=== PATIENT | female | born 1980 | race American Indian/Alaskan Native ===

== ENCOUNTER 2017-09-25 06:29 | Day surgery (SDC) | payer OTHER, MEDICAID ==
--- NOTE | 2017-09-24 17:21 | History and Physical Report ---
History of Present Illness Date of examination: 09/24/17 History of present illness: Patient has been reassessed/reevaluated. H&P has been reviewed. No interval changes. This is a 37 years old female who presents with menstrual disorder. The patient complains of menses, heavy bleeding, dysmenhorrhea, history of fibroids , fatigue and cramping, but denies spotting, lack of menses, she may be , history of thyroid disease, history of bleeding disorders, lightheadness and orthostatic symptoms. Menstrual periods have been with excessive flow. Patient's work up has included hysterosonogram which reveal a submucous myoma. Patient desires definitive treatment Vital Signs: Patient Profile: 37 Years Old Female Height: 63 inches (160.02 cm) Weight: 190 pounds (86.36 kg) BMI: 33.65 BSA: 1.89 Past History : 5 Term Births: 1 Premature Births: 1 Living Children: 1 Para: 2 Mult. Births: 0 Prev : 1 Prev. attempt? none Aborta: 3 Elect. Ab: 3 Spont. Ab: 0 Ectopics: 0 # 1 Delivery date: 1999 Delivery type: EAB # 2 Delivery date: 2001 Delivery type: EAB # 3 Delivery date: 2001 Delivery type: EAB # 4 Delivery date: 10/03/2012 Weeks Gestation: 21 labor: yes Delivery type: Delivery location: [facility] Infant Sex: Female weight: ? Comments: Had D&C done for retained placenta # 5 Delivery date: 12/29/2014 Weeks Gestation: 38 Delivery type: Anesthesia type: Spinal Delivery location: [facility] Sex: female weight: 6.50 Comments: Previous myomectomy CLINICAL RESEARCHER History Uterine Surgery (not C/S): negative, myomectomy Operations: Appendectomy (2001) D&C:retained placenta (2012) Transabdominal Myomectomy (08/21/2013) Abnormal PAP: positive Uterine Anomaly: positive fibroids Infertility: positive Infection History HIV Risk Eval: no Partner hx. of genital herpes: no Hx of STD: none Current Allergies (reviewed today): No known allergies Past Medical History: Anemia Blood Transfusions 2013 Fibroids Past Surgical History: Appendectomy (2001) D&C:retained placenta (2012) Transabdominal Myomectomy (08/21/2013) Family History Summary: Family History of Hypertension No Family History of Breast Cancer No Family History of Cervical Cancer No Family History of Colon Cancer No Family History of Diabetes No Family History of Ovarvian Cancer Social History: Patient is flagger Smoking History: Patient has never smoked. Risk Factors: Smoked Tobacco Use: Never smoker Smokeless Tobacco Use: Never Passive smoke exposure: no Drug use: no HIV high-risk behavior: no Alcohol use: no Exercise: no Seatbelt use: 100 % General Complains of fatigue. Denies fever, chills, sweats, anorexia, weakness, malaise, weight loss and sleep disorder. Complains of menorrhagia, pelvic pain and painful periods. Denies vaginal discharge, incontinence, dysuria, hematuria, urinary frequency, amenorrhea, abnormal vaginal bleeding, genital sores, decreased libido, painful sex, urinary urgency, hot flashes, vaginal dryness, vaginal itching and vaginal odor. CV Denies chest pains, palpitations, syncope, dyspnea on exertion, orthopnea, PND and peripheral edema. Resp Denies cough, dyspnea at rest, excessive sputum, hemoptysis, wheezing and pleurisy. GI Denies nausea, vomiting, diarrhea, constipation, change in bowel habits, abdominal pain, melena, hematochezia, jaundice, gas/bloating, indigestion/ heartburn, dysphagia and odynophagia. Breast Denies left breast lump, right breast lump, nipple discharge, bloody discharge from nipple, breast pain, abnormal mammogram and breast enlargement. Psych Denies depression, anxiety, irritability and mood swings. [L Past History Past Medical History: hypertension, other (SEE HPI) Past Surgical History: , Other (SEE HPI) Social history: (SEE HPI), full code Family history: other (SEE HPI) Medications and Allergies Allergies Allergy/AdvReac Type Severity Reaction Status Date / Time No Known Allergies Allergy Verified 12/20/14 13:27 Home Medications Medication Instructions Recorded Confirmed Last Taken Type Pnv,Calcium 72/Iron,Carb/Folic 1 tab PO DAILY 08/17/13 01/08/15 1 Day Ago History [ Plus Iron Tablet] ~12/28/14 1 tab Ferrous Sulfate [Feosol 325 MG tab] 325 mg PO BID #60 tablet 08/21/13 01/08/15 2 Days Ago Rx ~01/06/15 Ibuprofen [Motrin 600 MG tab] 800 mg PO Q6H PRN #30 tablet 08/21/13 01/08/15 Unknown Rx oxyCODONE /ACETAMINOPHEN [Percocet 1 - 2 tab PO Q4H PRN #30 tablet 08/21/1309/17 Unknown Rx 5/325 mg] Docusate Sodium [Colace] 100 mg PO BID PRN #60 capsule 08/23/13 01/08/15 Unknown Rx Simethicone 80 mg PO BID #60 tab.chew 08/23/13 01/08/15 Unknown Rx Ferrous Sulfate [Feosol 325 MG tab] 325 mg PO BID #60 tablet 12/29/14 01/08/15 2 Days Ago Rx ~01/06/15 Ibuprofen [Motrin 800 MG tab] 800 mg PO Q6H PRN #30 tablet 12/29/14 01/08/15 2 Days Ago Rx ~01/06/15 oxyCODONE /ACETAMINOPHEN [Percocet 1 - 2 tab PO Q4H PRN #30 tablet 12/29/1409/17 Unknown Rx 5/325 mg] Labetalol [Normodyne TAB] 200 mg PO BID #60 tablet 01/08/15 Unknown Rx Review of Systems Constitutional: other (SEE HPI) Exam - Physical Exam Narrative exam: HEENT: normocephalic, no lesions or deformities Skin no significant abnormal lesions or rashes Chest: respiratory effort normal, clear to auscultation Breasts: normal without skin changes or masses CV: regular, normal S1-S2, no murmur, no rub, no gallop Abdomen: normal bowel sounds, soft, nontender, no HSM Well healed pfannenstiel scar Musculoskeletal: grossly normal ROM in joints, no joint tenderness or muscle weakness Neuro: no gross anomalities Extremities: no clubbing, cyanosis, or edema CLINICAL RESEARCHER Exams Vulva/Vagina: normal appearance, no lesions. Cervix: normal appearance, no lesions. Uterus: Enlarged uterus 12 to 14 weeks size Adnexae: no masses or tenderness Rectovaginal: no masses or tenderness Results - Labs CBC & Chem 7: 09/25/17 06:55 Assessment and Plan - Patient Problems (1) Submucous leiomyoma of uterus Current Visit: No Status: Acute Plan to address problem: Diagnosis explained to patient . Questions answered. Discussed with patient various medical, surgical and radiological therapies common for treatment including myomectomy hysterectomy and uterine artery embolization Patient desires to retain future fertility. She desires myomectomy Discussed risk of surgery including infection, bleeding and risk of perforating her uterus. Questions answered. Patient understands and desires to proceed (2) Dysmenorrhea Current Visit: No Status: Acute Plan to address problem: Probably secondary to # 1 (3) Elevated blood pressure reading without diagnosis of hypertension Current Visit: No Status: Acute (4) Menorrhagia Current Visit: No Status: Acute Qualifiers: Menorrahagia type: with regular cycle Qualified Code(s): N92.0 - Excessive and frequent menstruation with regular cycle Plan to address problem: Probably secondary to # 1
[~2017-09-25 06:29] MED LIST: LACTATED RINGERS 1,000 ML IV SCH; NACL BACTERIOSTATIC INFILTRATI ONE
[2017-09-25 07:11] LABS: Basophils # (Auto) 0.1 K/mm3 (0.0-0.1); Basophils % (Auto) 1.2 % (0.0-1.8); Eosinophils # (Auto) 0.2 K/mm3 (0.0-0.4); Eosinophils % (Auto) 5.1 % (0.0-4.3); Hematocrit 33.6 % (30.3-42.9); Hemoglobin 10.3 gm/dl (10.1-14.3); Lymphocytes # (Auto) 1.6 K/mm3 (1.2-5.4); Lymphocytes % (Auto) 37.7 % (13.4-35.0); Mean Corpuscular HGB Conc 31 % (30-34); Monocytes # (Auto) 0.4 K/mm3 (0.0-0.8); Monocytes % (Auto) 8.6 % (0.0-7.3); Platelet Count 269 K/mm3 (140-440); Red Blood Count 5.08 M/mm3 (3.65-5.03); Red Cell Distribution Width 17.4 % (13.2-15.2)
[2017-09-25] MEDS ORDERED: XYLOCAINE MPF 2% ONE (07:11)
[2017-09-25] MEDS ORDERED: DECADRON ONE (07:11)
[2017-09-25] MEDS ORDERED: TORADOL ONE (07:11)
[2017-09-25] MEDS ORDERED: ZOFRAN ONE (07:11)
[2017-09-25] MEDS ORDERED: DIPRIVAN 10 MG/ML IV ONE (07:12)
[2017-09-25] MEDS ORDERED: SUBLIMAZE ONE (07:12)
[2017-09-25 07:23] LABS: BUN/Creatinine Ratio 12; Blood Urea Nitrogen 6 mg/dL (7-17); Calcium 7.9 mg/dL (8.4-10.2); Hemolysis Index 2
[2017-09-25] MEDS ORDERED: NACL 0.9% IR ONE (07:27)
[2017-09-25 07:36] LABS: Mean Corpuscular Hemoglobin 20 pg (28-32); Mean Corpuscular Volume 66 fl (79-97)
--- NOTE | 2017-09-25 07:43 | Anesthesia Consultation ---
Anesthesia Consult and Med Hx Date of service: 09/25/17 - Airway Anesthetic Teeth Evaluation: Good ROM Head & Neck: Adequate - Cardiac Exam Cardiac Exam: RRR - Pre-Operative Health Status ASA Pre-Surgery Classification: ASA2 Proposed Anesthetic Plan: General - Pulmonary Hx Smoking: No Hx Asthma: No COPD: No Hx Pneumonia: No Hx Sleep Apnea: No - Cardiovascular System Hx Hypertension: Yes (2014) - Central Nervous System Hx Neuromuscular Disorder: No Hx Seizures: No Hx Psychiatric Problems: No - Gastrointestinal Hx Gastroesophageal Reflux Disease: No - Endocrine Hx Renal Disease: No Hx End Stage Renal Disease: No Hx Liver Disease: No Hx Thyroid Disease: No Hx Hypothyroidism: No Hx Hyperthyroidism: No - Hematic Hx Anemia: Yes Hx Sickle Cell Disease: No - Other Systems Hx Alcohol Use: No Hx Cancer: No
--- NOTE | 2017-09-25 07:43 | Anesthesia Day of Surgery ---
Anesthesia Day of Surgery - Day of Surgery Patient Examined: Yes Patient H&P Reviewed: Yes Patient is NPO: Yes Beta Blockers: No Cardiac Clearance: No Pulmonary Clearance: No
[2017-09-25] MEDS ORDERED: DILAUDID IV PRN (07:44)
[2017-09-25] MEDS ORDERED: ZOFRAN IV PRN (07:47)
[2017-09-25] MEDS ORDERED: TORADOL IV PRN (07:47)
--- NOTE | 2017-09-25 08:12 | Operative Report ---
Operative Report Operative Report: Date of procedure: 09/25/2017 Pre-operative diagnosis: Submucosal myoma Post-operative diagnosis: Same Procedure name(s): Operative hysteroscopy with MyoSure Surgeon: Thor Ambrose MD Ticket Marker: MICHELLE Anesthesia: Gen. EBL: Minimal Complications: None Findings: Intracavitary myoma approximately 2-1/2 3 cm in diameter. Both tubal ostium was seen after removal of the myoma. Specimen(s): Uterine mass Procedure: Patient was brought into the operating room, where general anesthesia was induced without any difficulty. Patient was placed in dorsal lithotomy position. Prep and drape in the usual sterile manner. Timeout procedure was performed. The patient's bladder was emptied with a red rubber catheter. Speculum was placed in the vagina. Tenaculum was placed at 12:00 on the cervix. The cervical os was dilated to a 19 [place] diameter. The hysteroscope was placed and the findings noted above. The MyoSure device was primed. The device was placed through the cervical os. The mass was then removed using the MyoSure. The mass was completely removed with no evidence of puncture on the uterine wall. All instruments were then removed. The patient was awakened in the operating room and accompanied to recovery room in good condition.
--- NOTE | 2017-09-25 08:15 | Short Stay Summary ---
Short Stay Documentation Date of service: 09/25/17 - History H&P: dictated Past Medical History: hypertension, other (SEE HPI) Past Surgical History: , Other (SEE HPI) Social history: (SEE HPI), full code - Allergies and Medications Current Medications: Allergies No Known Allergies Allergy (Verified 12/20/14 13:27) Home Medications Medication Instructions Recorded Confirmed Last Taken Type Pnv,Calcium 72/Iron,Carb/Folic 1 tab PO DAILY 08/17/13 09/25/17 1 Day Ago History [ Plus Iron Tablet] ~12/28/14 1 tab Ferrous Sulfate [Feosol 325 MG tab] 325 mg PO BID #60 tablet 08/21/13 09/25/17 2 Days Ago Rx ~01/06/15 Ibuprofen [Motrin 600 MG tab] 800 mg PO Q6H PRN #30 tablet 08/21/13 09/25/17 Unknown Rx oxyCODONE /ACETAMINOPHEN [Percocet 1 - 2 tab PO Q4H PRN #30 tablet 08/21/13 Unknown Rx 5/325 mg] Docusate Sodium [Colace] 100 mg PO BID PRN #60 capsule 08/23/13 09/25/17 Unknown Rx Simethicone 80 mg PO BID #60 tab.chew 08/23/13 09/25/17 Unknown Rx Ferrous Sulfate [Feosol 325 MG tab] 325 mg PO BID #60 tablet 12/29/14 09/25/17 2 Days Ago Rx ~01/06/15 Ibuprofen [Motrin 800 MG tab] 800 mg PO Q6H PRN #30 tablet 12/29/14 09/25/17 2 Days Ago Rx ~01/06/15 oxyCODONE /ACETAMINOPHEN [Percocet 1 - 2 tab PO Q4H PRN #30 tablet 12/29/14 Unknown Rx 5/325 mg] Labetalol [Normodyne TAB] 200 mg PO BID #60 tablet 01/08/15 09/25/17 09/25/17 07 :10 Rx Acetaminophen/Codeine [Tylenol #3] 1 tab PO Q4HR PRN #20 tablet 09/25/17 Unknown Rx Doxycycline [Vibramycin CAP] 100 mg PO Q12HR #14 capsule 09/25/17 Unknown Rx Ibuprofen [Motrin 800 MG tab] 800 mg PO Q6H PRN #30 tablet 09/25/17 Unknown Rx Active Medications Hydromorphone HCl (Dilaudid) 0.5 mg IV Q10MIN PRN PRN Reason: Pain , Severe (7-10) Lactated Ringer's (Lactated Ringers) 1,000 mls @ 150 mls/hr IV DIRECT MARIBEL Last Admin: 09/25/17 07:00 Dose: 150 mls/hr Ketorolac Tromethamine (Toradol) 30 mg IV ONCE PRN PRN Reason: Pain, Moderate (4-6) Ondansetron HCl (Zofran) 4 mg IV ONCE PRN PRN Reason: Nausea And Vomiting - Brief post op/procedure progress note Date of procedure: 09/25/17 (see operative note) Condition: stable - Hospital course Hospital course: Patient was admitted underwent the above him procedure without any complications. Patient will be discharged with follow-up in office in 1-2 weeks for postop check. - Disposition Condition at discharge: Good Disposition: [id number] TO HOME OR SELFCARE - Discharge Diagnoses (1) Submucous leiomyoma of uterus Status: Acute (2) Dysmenorrhea Status: Acute (3) Elevated blood pressure reading without diagnosis of hypertension Status: Chronic (4) Menorrhagia Status: Acute Qualifiers: Menorrahagia type: with regular cycle Qualified Code(s): N92.0 - Excessive and frequent menstruation with regular cycle Short Stay Discharge Plan Activity: no restrictions, advance as tolerated Diet: regular Additional Instructions: Patient to call the office for excessive bleeding or pain not controlled by pain medication. Follow up with: HO WISDOM MD [Primary Care Provider] - 7 Days Prescriptions: Ibuprofen [Motrin 800 MG tab] 800 mg PO Q6H PRN #30 tablet PRN Reason: Pain Acetaminophen/Codeine [Tylenol #3] 1 tab PO Q4HR PRN #20 tablet PRN Reason: Pain Doxycycline [Vibramycin CAP] 100 mg PO Q12HR #14 capsule
[2017-09-25] MEDS ORDERED: TYLENOL #3 PO SCH (09:34)
[2017-09-25 10:41] VITALS: BP 134/85
--- NOTE | 2017-09-25 12:55 | Post Anesthesia Evaluation ---
- Post Anesthesia Evaluation Patient Participated: Yes Airway Patent: Yes Stable Respiratory Function: Yes Nausea/Vomiting: Yes Temp > 96.8F: Yes Pain Manageable: Yes Adequeate Hydration: Yes Anesthesia Complications: No
--- NOTE | 2017-09-25 16:01 | Post Anesthesia Evaluation ---
- Post Anesthesia Evaluation Patient Participated: Yes Airway Patent: Yes Stable Respiratory Function: Yes Nausea/Vomiting: No Temp > 96.8F: Yes Pain Manageable: Yes Adequeate Hydration: Yes Anesthesia Complications: No Block Receding Appropriately: Not Applicable Patient on Ventilator: No
== END 2017-09-25 10:10 | disposition home or self-care (01) ==
LOC: OR 06:29
PROVIDERS: ATTEND Obstetrics & Gynecology
DX: D25.0 Submucous leiomyoma of uterus (principal); I10 Essential (primary) hypertension
CPT/HCPCS: 36415; 58561; 80048; 81025; 85025; 88305; A4217; C1782; J1100; J1885; J2405; J2704; J3010; J7120

== ENCOUNTER 2020-11-18 11:05 | Outpatient (CLI) | payer OTHER ==
--- NOTE | 2020-11-21 08:41 | Mammography Report ---
DIGITAL SCREENING MAMMOGRAM WITH CAD, 11/18/2020 CLINICAL INFORMATION / INDICATION: Routine screening mammography. TECHNIQUE: Digital bilateral 2D mammography was obtained in the craniocaudal and mediolateral obliqu e projections. This examination was interpreted with the benefit of Computer-Aided Detection analysis . COMPARISON: 11/17/2019 FINDINGS: Breast Density: The breasts are heterogeneously dense, which may obscure small masses. No dominant mass, suspicious calcifications, or architectural distortion in either breast. IMPRESSION: No mammographic evidence of malignancy. Follow up recommendation: Routine yearly BI-RADS Category 1: Negative. A "normal" or negative report should not discourage follow up or biopsy of a clinically significant f inding. A written summary of these findings will be mailed to the patient. The patient will be entered into a mammography reporting system which will generate a reminder letter for the patient's next appointmen t at the appropriate interval. The [employer] recommends yearly mammograms starting at age 40 and continuing as l taqueria as a woman is in good health. Breast MRI is recommended for women with an approximate 20-25% or greater lifetime risk of breast cancer, including women with a strong family history of breast or ova shanice cancer or who have been treated for Hodgkin's disease. Signer Name: Radha Delarosa MD Signed: 11/21/2020 8:36 AM Workstation Name: [id number]
== END 2020-11-18 11:06 | disposition home or self-care (01) ==
LOC: SPVWC 11:05
PROVIDERS: ATTEND Obstetrics & Gynecology
DX: Z12.31 Encounter for screening mammogram for malignant neoplasm of breast (principal)
CPT/HCPCS: 77067

== ENCOUNTER 2022-01-10 15:45 | Outpatient (CLI) | payer OTHER | END 2022-01-10 15:46 | disposition home or self-care (01) | LOC: SPVWC 15:45 | PROVIDERS: ATTEND Obstetrics & Gynecology | DX: Z12.31 Encounter for screening mammogram for malignant neoplasm of breast (principal) | CPT/HCPCS: 77067 ==